=== PATIENT | female | born 1960 | race Caucasian/White ===

== ENCOUNTER 2023-10-22 15:29 | Emergency (ER) | payer OTHER, SELFPAY ==
[2023-10-22 15:35] VITALS: BP 117/70; PULSE 69; RESP 16; TEMP 37.1; O2SAT 97; BMI 30.7
--- NOTE | 2023-10-22 15:42 | DI.RAD.S_ITS ---
PROCEDURE: XR WRIST LT MIN 3V INDICATIONS: fall/pain TECHNIQUE: 4 views of the wrist were acquired. COMPARISON: [facility], CR, XR WRIST RT MIN 3V, 10/22/2023, 15:41. FINDINGS: Bones: No fractures or dislocations. Mild 1st CMC and STT as well as radiocarpal joint space narrowing and juxta-articular osteophytosis. No suspicious bony lesions. Soft tissues: No suspicious soft tissue calcifications. IMPRESSION: 1. No acute bony abnormality. If clinical symptoms persist, consider repeat radiograph in 10-14 days versus cross-sectional imaging. 2. 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 Dictated by: Gena Thakur M.D. on 10/22/2023 at 15:33 Approved by: Gena Thakur M.D. on 10/22/2023 at 15:34
--- NOTE | 2023-10-22 15:42 | DI.RAD.S_ITS ---
PROCEDURE: XR WRIST RT MIN 3V INDICATIONS: fall/pain TECHNIQUE: 4 views of the wrist were acquired. COMPARISON: [facility], CR, XR WRIST LT MIN 3V, 10/22/2023, 15:41. FINDINGS: Bones: No fractures or dislocations. Corticated ossific density in the radial aspect of the 1st CMC joint likely represents an accessory ossicle or sequela of remote injury/fractured osteophyte. Moderate 1st CMC and STT joint space narrowing and juxta-articular osteophytosis. Mild narrowing of the radiocarpal joint. No suspicious bony lesions. Soft tissues: No suspicious soft tissue calcifications. IMPRESSION: 1. No acute bony abnormality. If clinical symptoms persist, consider repeat radiograph in 10-14 days versus cross-sectional imaging. 2. 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 Dictated by: Gena Thakur M.D. on 10/22/2023 at 15:31 Approved by: Gena Thakur M.D. on 10/22/2023 at 15:33
--- NOTE | 2023-10-22 15:54 | ED.UPPEXIN ---
HPI - Extremity Injury (Upper) <EDWAR Neal Last Filed: 10/22/23 17:05> General Chief Complaint: Extremity Injury, Upper Stated Complaint: poss sprained rt wrist Time Seen by Provider: 10/22/23 15:53 Source: patient Mode of arrival: Ambulatory History of Present Illness HPI narrative: This is a 63-year-old female presents emergency department due to a mechanical ground level fall 10 days ago. She states she was walking and tripped landing on her bilateral hands. She was performing some continued right wrist pain as well as some mild left wrist pain. She denies any numbness or any other pain to the rest of her body. Not on blood thinners. Review of Systems <EDWAR Neal Last Filed: 10/22/23 17:05> Review of Systems Narrative: GENERAL: Denies chills, fatigue, malaise, fever, sweats. HEENT: Denies sinus pain, ear pain, sore throat, difficulty swallowing, dizziness. RESPIRATORY: Denies dyspnea, cough, wheezing, hemoptysis, sputum. CARDIOVASCULAR: Denies chest pain, palpitations, orthopnea, edema, GASTROINTESTINAL: Denies nausea, vomiting, abdominal pain, diarrhea, constipation, melena. : Denies dysuria, frequency, incontinence, hematuria, urinary retention. MUSCULOSKELETAL: Reports bilateral wrist pain SKIN: Denies rash, skin lesions, or other NEUROLOGIC: Denies weakness, headache, numbness, change in speech, confusion, seizures, incoordination. PSYCHIATRIC: No concerning psychosocial issues. 12 point review of systems is negative except for those stated above Patient History <EDWAR Neal Last Filed: 10/22/23 17:05> Social History Smoking Status: Never smoker Smoking Status: Never smoker Substance Use Type: does not use Exam <EDWAR Neal Last Filed: 10/22/23 17:05> Narrative Exam Narrative: GENERAL: Well-developed patient, in mild distress. HEAD: Atraumatic. Normocephalic. EYES: Pupils equal round and reactive. Extraocular motions intact. No scleral icterus. No injection or drainage. ENT: Nose without bleeding, purulent drainage. Throat without erythema, tonsillar hypertrophy or exudate. Airway patent. NECK: Trachea midline. Non tender EXTREMITIES: Mild tenderness to palpation to the medial aspect of the right forearm at the distal aspect NEURO: AOx3. SKIN: No rash or erythema of visible areas Initial Vital Signs Initial Vital Signs: Vital Signs Temperature 98.7 F 10/22/23 15:35 Pulse Rate 69 10/22/23 15:35 Respiratory Rate 16 10/22/23 15:35 Blood Pressure 117/70 10/22/23 15:35 Pulse Oximetry 97 10/22/23 15:35 Oxygen Delivery Method Room Air 10/22/23 15:35 <Nimo Martines DO - Last Filed: 10/23/23 07:34> Initial Vital Signs Initial Vital Signs: Vital Signs Temperature 98.7 F 10/22/23 15:35 Pulse Rate 69 10/22/23 15:35 Respiratory Rate 16 10/22/23 15:35 Blood Pressure 117/70 10/22/23 15:35 Pulse Oximetry 97 10/22/23 15:35 Oxygen Delivery Method Room Air 10/22/23 15:35 Course <Shoaib Browne PA-C - Last Filed: 10/22/23 17:05> Orders Ordered: ED Orders 10/22/23 15:42 XR wrist LT min 3V Stat XR wrist RT min 3V Stat Vital Signs Vital signs: Vital Signs - 8 hr 10/22/23 15:35 Temperature 98.7 F Pulse Rate 69 Respiratory Rate 16 Blood Pressure 117/70 Pulse Oximetry 97 Oxygen Delivery Method Room Air <Nimo Martines DO - Last Filed: 10/23/23 07:34> Orders Ordered: ED Orders 10/22/23 15:42 XR wrist LT min 3V Stat XR wrist RT min 3V Stat Vital Signs Vital signs: Vital Signs - 8 hr 10/22/23 15:35 Temperature 98.7 F Pulse Rate 69 Respiratory Rate 16 Blood Pressure 117/70 Pulse Oximetry 97 Oxygen Delivery Method Room Air MDM - Extremity Injury (Upper) <EDWAR Neal Last Filed: 10/22/23 17:05> Imaging Data Extremity x-ray #1: Radiologist's Impression: [address] [address] XRay Report Signed Patient: Preethi Stevenson MR#: [id number] : 1960 Acct:[id number] Age/Sex: 63 / F Date of Service: 10/22/23 Loc: ED Accession Number: [id number] Procedure: XR wrist RT min 3V Ordering Provider: Nimo Martines D.O. PROCEDURE: XR WRIST RT MIN 3V INDICATIONS: fall/pain TECHNIQUE: 4 views of the wrist were acquired. COMPARISON: [facility], XR WRIST LT MIN 3V, 10/22/2023, 15:41. FINDINGS: Bones: No fractures or dislocations. Corticated ossific density in the radial aspect of the 1st CMC joint likely represents an accessory ossicle or sequela of remote injury/fractured osteophyte. Moderate 1st CMC and STT joint space narrowing and juxta-articular osteophytosis. Mild narrowing of the radiocarpal joint. No suspicious bony lesions. Soft tissues: No suspicious soft tissue calcifications. IMPRESSION: 1. No acute bony abnormality. If clinical symptoms persist, consider repeat radiograph in 10-14 days versus cross-sectional imaging. 2. 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 Dictated by: Gena Thakur M.D. on 10/22/2023 at 15:31 Approved by: Gena Thakur M.D. on 10/22/2023 at 15:33 Extremity x-ray #2: Radiologist's Impression: [place] [address] XRay Report Signed Patient: Preethi Stevenson MR#: [id number] : 1960 Acct:[id number] Age/Sex: 63 / F Date of Service: 10/22/23 Loc: ED Accession Number: [id number] Procedure: XR wrist LT min 3V Ordering Provider: Nimo Martines D.O. PROCEDURE: XR WRIST LT MIN 3V INDICATIONS: fall/pain TECHNIQUE: 4 views of the wrist were acquired. COMPARISON: [facility], , XR WRIST RT MIN 3V, 10/22/2023, 15:41. FINDINGS: Bones: No fractures or dislocations. Mild 1st CMC and STT as well as radiocarpal joint space narrowing and juxta-articular osteophytosis. No suspicious bony lesions. Soft tissues: No suspicious soft tissue calcifications. IMPRESSION: 1. No acute bony abnormality. If clinical symptoms persist, consider repeat radiograph in 10-14 days versus cross-sectional imaging. 2. 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 Dictated by: Gena Thakur M.D. on 10/22/2023 at 15:33 Approved by: Gena Thakur M.D. on 10/22/2023 at 15:34 MDM Narrative Medical decision making narrative: ED course: This is a 63-year-old female presents emergency department due to a mechanical ground level fall where she injured both wrists. X-ray showed no acute findings. Recommended supportive care. Neurovascularly intact throughout. CC: Bilateral wrist pain Complicating co-morbidities: None Data collected from: Previous notes Medical records reviewed: Patient was no records available to review. Differential considered, but not limited to: Fracture, soft tissue injury, sprain Exam documented above, pertinent findings include: Neurovascularly intact throughout Lab Test results independently reviewed as above. Pertinent findings: None obtained Imaging studies independently reviewed: X-ray showed no acute findings Scores Used: None MIPS Elements: None Consultations: None Treatments: None Re-evaluations: None Discussion: Discussed plan with the patient was comfortable with the plan Diagnosis: Wrist sprain Disposition: see below, along with detailed discharge instructions that have been reviewed with patient as well as indications for ED re-evaluation and additional outpatient follow up Discharge Plan Departure Patient Disposition: Home Clinical Impression: Sprain and strain of wrist Instructions: DI for Wrist Sprain Activity Restrictions/Additional Instructions: Thank you for coming to the [facility] Emergency Department today. Your x-ray showed no fractures, dislocations, or other acute abnormalities. Please treat this he would as you would sprain with ibuprofen, ice, and rest. Please return to the emergency department if you develop any severe pain, numbness, or any other concerning signs or symptoms. I hope you feel better soon. Please follow up with your primary care provider within a week if your symptoms continue. If you do not have a primary care provider please contact the [facility] Resource line at [phone]. They will ask some questions about your medical history and help you get set up with a provider in the community. Stand Alone Forms: Patient Portal/API ED Sign-out <Nimo Martines DO - Last Filed: 10/23/23 07:34> Cosign ED Attending Rob Attestation: I was immediately available in the department for consultation.
[2023-10-22 17:09] VITALS: BP 121/68; PULSE 72; RESP 16; TEMP 36.7; O2SAT 98
== END 2023-10-22 17:09 | disposition home or self-care (01) ==
PROVIDERS: Emergency Provider Physician Assistant Medical
DX: S63.502A Unspecified sprain of left wrist, initial encounter (principal); S63.501A Unspecified sprain of right wrist, initial encounter; W01.0XXA Fall on same level from slipping, tripping and stumbling without subsequent striking against object, initial encounter
CPT/HCPCS: 73110; 99283